=== PATIENT | female | born 1975 | race Caucasian/White ===

== ENCOUNTER 2024-04-10 11:50 | Emergency (ER) | payer BC, SELFPAY ==
[2024-04-10 11:52] VITALS: BP 143/78; PULSE 78; RESP 20; TEMP 36.6; O2SAT 99
[2024-04-10] MEDS: ACETAMINOPHEN 500 MG TABLET 1000 MG PO (13:17)
[2024-04-10] MEDS: IBUPROFEN 400 MG TABLET 800 MG PO (13:18)
[2024-04-10] MEDS: diazePAM INJ (*CRX) 10 MG/2 ML SYRINGE 5 MG IM (13:20)
--- NOTE | 2024-04-10 13:45 | ED.BACK ---
HPI - Back Pain/Injury General Chief Complaint: Back Pain/Injury Stated Complaint: lower back pain Time Seen by Provider: 04/10/24 12:43 Source: patient Mode of arrival: ambulatory Limitations: no limitations History of Present Illness HPI Narrative: This is a 48-year-old female who presents to the ED with chief complaint of low back pain x3 weeks. Reports initial injury when she was picking up a crate chickens where she pulled the low back. Reports the pain seemed to have gotten a little better over the past couple of weeks but this morning it seemed to be spasming again when she was trying to get out of bed. She had significant difficulty with getting out of bed. Denies numbness, weakness, bowel or bladder dysfunction. Denies fevers, chills or any IV drug use. She has not taken any medications for pain prior to arrival Related Data Allergies Allergy/AdvReac Type Severity Reaction Status Date / Time No Known Allergies Allergy Verified 04/10/24 11:58 Review of Systems Review of Systems: All systems as dictated in HPI Exam Narrative: GENERAL: Well-appearing, well-nourished, and in no acute distress. HEAD: Normocephalic, atraumatic. EYES: PERRLA and EOMI. ENT: Nares clear, no rhinorrhea or epistaxis. Mucous membranes moist. Oropharynx without tonsillar hypertrophy exudate or other lesions. NECK: Supple. No adenopathy or masses. CHEST: No respiratory distress. Clear to auscultation. No wheezes rales or rhonchi HEART: Regular rate and rhythm. No murmur heard. Normal peripheral pulses. ABDOMEN: Soft, nontender, nondistended, normal active bowel sounds. MSK: No midline spinal tenderness throughout the spine. There is mild tenderness to the bilateral lower lumbar paraspinal muscles. The muscles are tight. 5/5 strength and sensation in the upper and lower extremities. SKIN: Warm, dry, no rash. NEURO: Alert and oriented x3. No focal deficits. PSYCH: Normal mood and affect. Course Vital Signs Vital signs: Vital Signs Temperature 97.8 F 04/10/24 11:52 Pulse Rate 78 04/10/24 11:52 Respiratory Rate 20 04/10/24 11:52 Blood Pressure 143/78 H 04/10/24 11:52 Pulse Oximetry 99 04/10/24 11:52 Oxygen Delivery Room Air 04/10/24 11:52 Temperature 97.7 F 04/10/24 14:03 Pulse Rate 63 04/10/24 14:03 Respiratory Rate 16 04/10/24 14:03 Blood Pressure 120/65 04/10/24 14:03 Pulse Oximetry 97 04/10/24 14:03 Oxygen Delivery Room Air 04/10/24 11:52 MDM - Back Pain/Injury MDM Narrative Medical decision making narrative: This is a 48-year-old female who presents to the ED with chief complaint of worsening back pain following injury that occurred a couple of weeks ago. Vitals are normal. Exam is showing a muscular tenderness. No midline spinal tenderness. No red flag back signs or symptoms. No need for imaging at this point. She was given symptomatic treatment with Valium, Tylenol and ibuprofen. Rx for cyclobenzaprine given for muscle spasm. Pt will be discharged in stable condition. Return precautions given and supportive measures discussed. Pt is understanding and agreeable with plan for discharge and follow-up with PCP. Discharge Plan Discharge Clinical Impression: Strain of lumbar region Patient Disposition: Home, Self-Care Condition: Stable Instructions: Antibiotic Form, Acute Low Back Pain (ED) Additional Instructions: Your exam today shows spasms of the back. Please take muscle relaxers as needed, take the med at night as they can make you sleepy. Otherwise use Tylenol and ibuprofen regularly for pain control. This should self resolve over the next several weeks. Follow-up with PCP If you have any new or worsening symptoms please return to the ER for further evaluation. Prescriptions: New cyclobenzaprine 10 mg tablet 10 mg PO HS PRN (Reason: muscle spasm) Qty: 10 0RF Follow-up/Referrals: UNKNOWN,DOCTOR [Primary Care Provider] - Time
[2024-04-10 14:03] VITALS: BP 120/65; PULSE 63; RESP 16; TEMP 36.5; O2SAT 97
== END 2024-04-10 14:06 | disposition home or self-care (01) ==
PROVIDERS: Emergency Provider Physician Assistant
DX: S39.012D Strain of muscle, fascia and tendon of lower back, subsequent encounter (principal); X50.0XXD Overexertion from strenuous movement or load, subsequent encounter
CPT/HCPCS: 96372; 99283; A9270; J3360